=== PATIENT | male | born 1965 | race Caucasian/White ===

== ENCOUNTER 2019-04-14 06:19 | Inpatient (IN) ==
--- NOTE | 2019-04-06 21:19 | PAT Medication Instructions ---
Medication Instructions Date of Service April 06, 2019 Home Medications albuterol sulfate 1.25 mg INHALATION QID PRN cyclobenzaprine 5 mg PO TID PRN epinephrine [EpiPen] 0.3 mg IM Q3H PRN fexofenadine-pseudoephedrine [Yesika-D 24 Hour] 1 tab PO QAM hydrocodone-acetaminophen 1 tab PO Q6H PRN mometasone-formoterol [Dulera] 2 puff INHALATION BID montelukast [Singulair] 10 mg PO QAM Continue as directed epinephrine [EpiPen] 0.3 mg IM Q3H PRN (if needed) DO NOT take the morning of surgery cyclobenzaprine 5 mg PO TID PRN fexofenadine-pseudoephedrine [Yesika-D 24 Hour] 1 tab PO QAM montelukast [Singulair] 10 mg PO QAM Take morning of surgery With a small sip of water, OTHERWISE NOTHING TO EAT OR DRINK AFTER MIDNIGHT: albuterol sulfate 1.25 mg INHALATION QID PRN (use if needed; please bring with you to hospital day of surgery if possible) hydrocodone-acetaminophen 1 tab PO Q6H PRN (okay to take up to 4 hours prior to surgery if needed) mometasone-formoterol [Dulera] 2 puff INHALATION BID Other Notes If you have any questions please call us at [phone] or [phone] or [phone] or [phone]
--- NOTE | 2019-04-07 12:22 | History & Physical Report ---
Date of Service April 07, 2019 date of surgery: 04-14-19 Assessment & Plan (1) Tricompartment osteoarthritis of right knee: Risks and benefits of procedure discussed in detail today, patient would like to proceed with a Right total knee replacement at [facility] as scheduled. will obtain PATs at [facility]. Will place on ASA 81mg po bid x 1 month post op, f/u 2 weeks post op for routine post-operative care and x-ray, sooner if having any problems. will make arrangements for HHPT at the time of discharge. At this point in time, has failed conservative measures and would like to proceed with surgical intervention. History of Present Illness Chief Complaint: right knee pain Primary Care Provider: Liliana Morrison Mr García is a 54 year old male who is here for a follow up of right knee pain, presents for pre-op evaluation prior to a right total knee replacement at [facility] on 04-14-19. he complains of pain and decreased range of motion in his right knee. The symptoms occur intermittently. Currently the patient states that the symptoms are moderate-severe. The pain is described as aching. The symptoms occur intermittently. he has tried previous cortisone injections with no relief, uses tylenol and PO NSAIDs with no relief. he is having pain with walking, standing, using stairs and occasional pain at night. Allergies Allergy/AdvReac Type Severity Reaction Status Date / Time ibuprofen Allergy Difficulty Verified 03/31/19 10:18 Breathing; swelling of the eyes Home Medications Home Medications Medication Instructions Recorded Confirmed Type albuterol sulfate 1.25 mg INHALATION QID PRN 03/31/19 03/31/19 History cyclobenzaprine 5 mg PO TID PRN 03/31/19 03/31/19 History epinephrine [EpiPen] 0.3 mg IM Q3H PRN 03/31/19 03/31/19 History fexofenadine-pseudoephedrine 1 tab PO QAM 03/31/19 03/31/19 History [Yesika-D 24 Hour] hydrocodone-acetaminophen 1 tab PO Q6H PRN 03/31/19 03/31/19 History mometasone-formoterol [Dulera] 2 puff INHALATION BID 03/31/19 03/31/19 History montelukast [Singulair] 10 mg PO QAM 03/31/19 03/31/19 History Past Med/Surg History Medical History Asthma last used PRN neb 2-3 months ago (does not use PRN inh) [place] (hard of hearing) Rt History of gastroesophageal reflux (GERD) Osteoarthritis Surgical History History of arthroscopic knee surgery BL History of colonoscopy History of esophagogastroduodenoscopy (EGD) History of sinus surgery x 2 History of tonsillectomy History of tooth extraction Social History Preferred Language: Peruvian Communication Ability: Effective 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 Beliefs That Will Affect Care: None Current Living Situation: Spouse Other Information That Helps Us Care for You: No Feels Safe at Home: Yes Safety Concerns: Feels Safe At This Time Smoking Status: Never smoker Do You Dip or Chew Tobacco: No ; Second Hand Exposure: No ; Hx Alcohol Use: No Hx Substance Use: No Review of Systems Review of Systems: All systems reviewed & are unremarkable except as noted in HPI & below Constitutional: no fever, no chills and no sweats Respiratory: no cough and no dyspnea Cardiovascular: no chest pain, no dyspnea and no orthopnea Gastrointestinal: no abdominal pain, no nausea and no vomiting Musculoskeletal: as per Subjective / HPI Physical Exam Physical Exam: Ht: 5ft 11in Wt: 76kg BP: 122/72 Pulse: 72 Constitutional: WD/WN, vitals as above no acute distress Respiratory: normal respiratory effort, lungs clear to auscultation no respiratory distress, no labored breathing and does not use accessory muscles Cardiovascular: RRR, no murmur, no edema Gastrointestinal (Abdomen): normal bowel sounds, soft, nontender, no hepatosplenomegaly Musculoskeletal: Knee: + knee abnormal to inspection (right knee), + effusion (+1 effusion), + surgical incision (well healed portals), + limited ROM of knee (ROM 0/3/110), + knee ROM with crepitation, + joint line tenderness (medial joint line) and + Anjelica's sign positive; no deformity, no skin erythema, no ecchymosis, no valgus laxity, no varus laxity, anterior drawer test negative, Tessie's sign negative and pivot shift test negative Results & Data Diagnostic Findings Right knee x-ray from 04/28/18 showing complete loss joint space medial compartment with overall varus alignment, there is also narrowing of the lateral compartment and patellofemoral joint. there is osteophyte formation, subchondral sclerosis noted, no loose bodies, no acute bony pathology. overall impression tricompartmental degenerative changes to the right knee.
--- NOTE | 2019-04-07 13:01 | Anesthesiology Consultation ---
Date of Service April 07, 2019 Assessment & Plan (1) Encounter for pre-operative examination: Chart Review Chart Review: Pending: Refer to Additional Notes / Consult section (pending preop testing (labs, EKG, CXR)) and Patient seen in Pre Admission Testing Teaching & Discussion Pre-Anesthesia Teaching/Discussion Notes: Instructed NPO after midnight before surgery,except medications with 15 cc of water. Medication instructions provide d according to the PAT guidelines. History Surgery Operation Date: 04/14/19 10:25 Proposed Procedures p Right Total Knee Arthroplasty - Serafin Zambrano DO Height/Weight Height: 5 ft 11 in Weight: 78.2 kg Allergies Allergy/AdvReac Type Severity Reaction Status Date / Time ibuprofen Allergy Difficulty Verified 03/31/19 10:18 Breathing; swelling of the eyes Medications Home Medications Medication Instructions Recorded Confirmed Last Taken albuterol sulfate 1.25 mg INHALATION QID PRN 03/31/19 03/31/19 Unknown cyclobenzaprine 5 mg PO TID PRN 03/31/19 03/31/19 Unknown epinephrine [EpiPen] 0.3 mg IM Q3H PRN 03/31/19 03/31/19 Unknown fexofenadine-pseudoephedrine 1 tab PO QAM 03/31/19 03/31/19 Unknown [Yesika-D 24 Hour] hydrocodone-acetaminophen 1 tab PO Q6H PRN 03/31/19 03/31/19 Unknown mometasone-formoterol [Dulera] 2 puff INHALATION BID 03/31/19 03/31/19 Unknown montelukast [Singulair] 10 mg PO QAM 03/31/19 03/31/19 Unknown Past Medical History Medical History Asthma stable [place] (hard of hearing) Right History of gastroesophageal reflux (GERD) controlled; no recent issues Osteoarthritis Exercise / Class Metabolic Activity II 4-5 Yardwork/Stairs/Walk up hill Past Surgical History Surgical History History of arthroscopic knee surgery BL History of colonoscopy History of esophagogastroduodenoscopy (EGD) History of sinus surgery x 2 History of tonsillectomy History of tooth extraction Past Anesthesia History No Hx of Anesthesia Complications and No Family Hx of Anesthesia Complications History of PONV No Hx of PONV and No Hx of Motion Sickness Social History Smoking Status: Never smoker Do You Dip or Chew Tobacco: No Hx Alcohol Use: No Hx Substance Use: No substance use type: does not use Review of Systems Hx reflux. No recent issues. Patient denies chest pain, shortness of breath, dyspnea on exertion, cough, wheezing, palpitations. Physical Exam Vital Signs VITALS BP 128/86 P 69 TEMP 98.1 SP02 99%RA RESP 18 PHYSICAL Full neck and c-spine range of motion. Full TMJ range of motion. TMD 3 finger breaths Mallampati Score 2 Dentition: broken molars per patient Lungs: clear throughout to auscultation Cardiac: regular rate and rhythm, no murmurs noted Spine: normal Carotid arteries: negative bruit Extremities: no edema
--- NOTE | 2019-04-07 14:19 | XRay Report ---
XR chest Pre-admission PA/Lat CLINICAL HISTORY: Preoperative chest COMPARISON STUDY: No previous studies for comparison. FINDINGS: The cardiac and mediastinal contours are normal. There is no evidence of focal pulmonary co nsolidation. There is no evidence of failure. No pleural effusions are visualized.[ There is an old deformity of the right shoulder region, possibly secondary to a chronic AC joint sepa ration IMPRESSION: No active disease in the chest. Electronically signed by: Turner Newell M.D. 04/07/2019 2:17 PM
[2019-04-07 15:30] LABS: Basophils # (auto) 0.03 K/uL (0-0.2); Basophils % (auto) 0.5 %; Eosinophils # (auto) 0.48 K/uL (0-0.5); Eosinophils % (auto) 7.5 %; Hematocrit (blood only) 40.8 % (42-52); Hemoglobin 14.3 g/dL (14.0-18.0); Lymphocytes # (auto) 2.21 K/uL (1.2-3.4); Lymphocytes % (auto) 34.5 %; Mean Corpuscular Hemoglobin 32.8 pg (25-34); Mean Corpuscular Volume 93.6 fL (80-100); Mean Platelet Volume 9.3 fL (7.4-10.4); Monocytes # (auto) 0.62 K/uL (0.11-0.59); Monocytes % (auto) 9.7 %; Neutrophils # (auto) 3.07 K/uL (1.4-6.5); Neutrophils % (auto) 47.8 %; Platelet Count 247 K/uL (130-400); RDW Coefficient of Variation 12.7 % (11.5-14.5); RDW Standard Deviation 43.4 fL (36.4-46.3); Red Blood Count 4.36 M/uL (4.7-6.1); White Blood Count 6.41 K/uL (4.8-10.8)
[2019-04-07 15:33] LABS: Appearance Urine Clear (Clear); Bilirubin Urine Negative (Negative); Blood Urine Negative (Negative); Color Urine Yellow; Glucose Urine UA Negative (Negative); Ketones Urine Negative (Negative); Leukocyte Esterase Urine Negative (Negative); Nitrite Urine Negative (Negative); Protein Urine Negative (Negative); Specific Gravity Urine 1.032 (1.000-1.030); Urobilinogen Urine Negative (Negative); pH Urine 5.5 (4.5-7.5)
[2019-04-07 15:38] LABS: Albumin Level 3.9 gm/dl (3.4-5.0); BUN Creatinine Ratio 21.8 (10-20); Calcium 9.2 mg/dl (8.5-10.1); Creatinine Clr Calc Pharmacy 118.7 ml/min; Est GFR (African American) 119.5; Est GFR (Non-African American) 103.1; Potassium 4.2 mmol/L (3.5-5.1)
[2019-04-07 15:47] LABS: Partial Thromboplastin Time 26.6 Seconds (21.0-31.0); Prothrombin Time 10.7 Seconds (9.0-12.0)
[2019-04-08 07:06] LABS: Estimated Average Glucose 103 mg/dl; Hemoglobin A1C 5.2 % (4.5-5.6)
[~2019-04-14 06:19] MED LIST: ACETAMINOPHEN 500 MG TAB PO SCH; BUPIVACAINE 0.5 % 5 MG/1 ML PF 10ML VIAL ONE; CEFAZOLIN 1000MG 1,000 MG/7.5 ML SYR IV SCH; CeleBREX 200 MG CAP PO SCH; GABAPENTIN 600 MG DOSE PO SCH; LR 500ML BOLUS, THEN 15ML/HR IV SCH; TRANEXAMIC ACID 1,000 MG **IV Pre-op IV SCH; dexAMETHasone 4 MG TAB PO SCH
[2019-04-14] MEDS ORDERED: TRANEXAMIC ACID 1,000 MG **IV Intra-op IV SCH (06:30)
[2019-04-14] MEDS ORDERED: KETAMINE HCL INJ 50 MG/ML 10 ML VIAL ONE (06:39)
[2019-04-14] MEDS ORDERED: MIDAZOLAM HCL 1 MG/ML 2ML VIAL ONE (06:39)
--- NOTE | 2019-04-14 07:20 | History & Physical Bridge Note ---
Date of Service April 14, 2019 History & Physical Bridge Note I have examined the patient, reviewed the History & Physical and in the interval since the performance of the History & Physical I have noted the following changes of clinical significance: no changes noted
[2019-04-14] MEDS ORDERED: BACITRACIN INJ 50,000 UNIT VIAL ONE (07:32)
[2019-04-14] MEDS ORDERED: ROPIVACAINE 0.5% HCL/PF 150 MG, BUPIVACAINE 0.5% MPF 30 ML, EPINEPHrine 30MG/30ML (OR U... INSTIL ONE ×3 (08:00→09:00)
[2019-04-14] MEDS ORDERED: fentaNYL citrate 100 MCG/2 ML VIAL IV PRN (08:05)
[2019-04-14] MEDS ORDERED: ONDANSETRON INJ 2 MG/ML 2 ML VIAL IV PRN ×2 (08:05→10:17)
[2019-04-14] MEDS ORDERED: ePHEDrine sulfate 50 MG/ML AMP IV PRN (08:05)
[2019-04-14] MEDS ORDERED: ATROPINE SULFATE 0.1 MG/ML 10ML SYR IV PRN (08:05)
[2019-04-14] MEDS ORDERED: fentaNYL citrate 100 MCG/2 ML VIAL ONE (08:36)
[2019-04-14] MEDS ORDERED: ORTHO JOINT ANESTHETIC SC ONE (08:50)
[2019-04-14] MEDS ORDERED: DEXAMETHASONE SOD INJ 4 MG/ML VIAL ONE (09:02)
[2019-04-14] MEDS ORDERED: ONDANSETRON INJ 2 MG/ML 2 ML VIAL ONE (09:02)
[2019-04-14] MEDS ORDERED: LIDOCAINE HCL 2% 2 ML VIAL/AMP(20MG/ML) INFIL ONE (09:02)
[2019-04-14] MEDS ORDERED: GLYCOPYRROLATE 0.2 MG/ML VIAL ONE (09:02)
[2019-04-14] MEDS ORDERED: PROPOFOL IV EMULSION 10 MG/ML 20 ML VIAL IV ONE ×2 (09:02→09:44)
--- NOTE | 2019-04-14 09:37 | Operative Report ---
Post Operative Report Pre & Post Diagnosis Operation Date: 04/14/19 08:50 Pre-Op Diagnosis: Degernerative joint disease right knee Post-Op Diagnosis: Degernerative joint disease right knee Procedure Operation Date: 04/14/19 08:50 Actual Procedures p Right Total Knee Arthroplasty(Right) utilizing [employer] journey to non- block total knee arthroplasty size 6 femur 6 tibia 10 polyethylene 32 oval patella- Serafin Zambrano DO Surgeon Serafin Zambrano DO Is Manager Klaus MONTOYA Estimated Blood Loss 5 Findings Consistent with Post-Op Diagnosis Patient presents with severe end-stage tricompartmental DJD of the right knee varus alignment 10 degree flexion contracture patient noted evidence of subchondral sclerosis marginal osteophytes eburnated bone subchondral cystic changes with a moderate to large effusion Specimens Bone card Drains Medium bore Hemovac Complications none Disposition Accompanied Patient To Recovery: No Disposition: Recovery Room Indications Patient presents as a 54-year-old white male with severe end-stage tricompartmental degenerative joint disease of the right knee varus alignment 10 degree flexion contracture [id number] is failed attempted Visco supplementation cortical steroid injections relative rest activity modification presents for right total knee arthroplasty the above intraoperative findings noted times surgery Description of Procedure After proper identification of the patientAfter proper prepping and draping of the Right lower extremity anterior midline incision was made over the region of the extensor extensor mechanism after meticulous hemostasis was obtained and maintained in subcutaneous tissues a medial parapatellar incision was made The patella was subluxed lateralward the medial lateral gutter were cleaned from any hypertrophic synovitis and scar tissue of the distal femoral block was placed and the distal femoral osteotomy cut was made subsequently the chamfers anterior and posterior osteotomy cuts were made utilizing the 4-in-1 block the tibia was subsequently subluxed anteriorward medial and ateral meniscal remnants were excised in their entirety remnants of the anterior and posterior cruciate ligaments were excised in their entirety excellent exposure of the proximal tibia was obtained the tibial osteotomy guide was placed on the proximal tibial osteotomy cut was made once again the knee was irrigated with copious amounts of sterile saline solution the patella was subsequently everted lateralward thickened scar tissue around the patella was removed the patella was subsequently cut utilizing a freehand technique and was drilled prepared for final preparation and placement of patella socially flexion-extension gaps were checked and the equal and symmetric trials were placed to the appropriate femoral and tibial trials with poly-spacer being placed for equal flexion and extension gaps and full range of motion including extension to 0 and flexion to 140 the trial components after having been taken to recovery range of motion was subsequently removed meticulous hemostasis was obtained and maintained subsequently a knee block injection of joint cocktail including ropivacaine 0.5% 150 mg. Bupivacaine 0.5% epinephrine 1-200,030 mL's toradol 30 mg dexamethasone 4 mg ketamine 10 mg clonidine 100 micrograms normal saline solution 30 mg was infiltrated into the soft tissues of the posterior knee medial lateral gutters and periosteal synovium special attention was paid to protect neurovascular structures at all times subsequently trial components having been removed the knee was irrigated with sterile saline solution. debris was removed the proximal tibia was subsequently prepared and was made ready for the placement of the tibial component tibial component was also cemented and tamped into position the femoral component was subsequently placed and cemented in the position the patellar component was subsequently cemented in position because hemostasis once again obtained and maintained wound having been thoroughly irrigated with debridement and debridement lavage was performed as well as a medial parapatellar incision closed with #1 Vicryl in interrupted fashion subcutaneous was closed with #2 Vicryl skin was closed with skin clips. PA-C was necessary for prepping and drapping as well as wound closure of deep fascia Sub cutaneous tissue and skin and was necessary for the case. A sterile compressive dressing was placed patient was taken to recovery in stable condition of report dictated by Juan Manuel I attest to the content of the Intraoperative Record and any orders documented therein. Any exceptions are noted below. I attest to the content of the Intraoperative Record and any orders documented therein. Any exceptions are noted below.
[2019-04-14] MEDS ORDERED: POVIDONE-IODINE OP SOLN 30 ML BTL TOP SCH (09:45)
[2019-04-14] MEDS ORDERED: bisacodyL 10 MG SUPP PR PRN (10:17)
[2019-04-14] MEDS ORDERED: MAGNESIUM HYDROXIDE SUSP 30 ML UDC PO PRN (10:17)
[2019-04-14] MEDS ORDERED: NALOXONE HCL 0.4 MG/1 ML VIAL/CARP IV PRN (10:17)
--- NOTE | 2019-04-14 10:36 | Anesthesiology Progress Note ---
Date of Service April 14, 2019 Anesthesia Post Procedure Vital Signs Vital Signs: Temp Pulse Pulse Resp BP Pulse Ox 04/14/19 10:30 96 H 15 128/85 97 04/14/19 10:20 110 H 19 122/82 98 04/14/19 10:11 97.0 F L 103 H 13 113/73 100 04/14/19 06:45 98.4 F 80 20 133/99 98 Pain Intensity Right Knee: Pain Intensity: 5 Transfer of Care Handoff Completed per policy Notes Mental Status: alert / awake / arousable and participated in evaluation Patient Amnestic to Procedure: Yes Nausea / Vomiting: adequately controlled Pain: adequately controlled Airway Patency, RR, SpO2: stable & adequate BP & HR: stable & adequate Hydration State: stable & adequate Neuraxial Anesthesia: was administered and sensory block is resolving Anesthetic Complications: no major complications apparent and Pt Satisfied with anesthetic care
--- NOTE | 2019-04-14 10:39 | XRay Report ---
RIGHT KNEE 2 VIEWS History: Right total knee arthroplasty. Degenerative arthritis. Postop. FINDINGS: The patient is status post a right total knee arthroplasty. The hardware is intact. No frac ture or dislocation. Skin naldo and surgical drains are in place. IMPRESSION: Right total knee arthroplasty. No evidence for hardware complication. Electronically signed by: Casper Aguayo M.D. 04/14/2019 10:38 AM
[2019-04-14] MEDS ORDERED: ALBUTEROL 0.083% NEBU SOLN 3 ML VIAL INH PRN (11:38)
[2019-04-14] MEDS: OXYCODONE HCL IR 5 MG TAB (IMMEDIATE RELEASE) PO PRN ×3 (11:40→23:49)
[2019-04-14] MEDS: SODIUM CHLORIDE 0.9% 1000ML 1,000 ML IV SCH ×2 (11:44→21:28)
[2019-04-14] MEDS: HYDROmorphone INJ 0.5 MG/0.5 ML SYR IV PRN (12:26)
[2019-04-14] MEDS ORDERED: DULERA - ORDER AWAITING ACTION SCH (16:00)
[2019-04-14] MEDS: CEFAZOLIN 1000MG 1,000 MG/7.5 ML SYR IV SCH ×2 (16:22→23:49)
[2019-04-14] MEDS: ACETAMINOPHEN 500 MG TAB PO SCH ×2 (16:23→21:32)
[2019-04-14] MEDS ORDERED: HYDROmorphone INJ 0.5 MG/0.5 ML SYR IV STA (16:24)
[2019-04-14] MEDS: OXYCODONE HCL 10 MG TABCR (OXYCONTIN) PO SCH (21:29)
[2019-04-14] MEDS: SENNA 8.6 MG TAB PO SCH (21:30)
[2019-04-14] MEDS: MONTELUKAST SODIUM 10 MG TABLET PO SCH (21:30)
[2019-04-14] MEDS: DOCUSATE SODIUM 100 MG CAP PO SCH (21:30)
[2019-04-14] MEDS: MOMETASONE/FORMOTEROL INH SCH (21:31)
[2019-04-15] MEDS: OXYCODONE HCL IR 5 MG TAB (IMMEDIATE RELEASE) PO PRN ×5 (03:15→19:02)
[2019-04-15] MEDS: ACETAMINOPHEN 500 MG TAB PO SCH ×2 (05:04→13:31)
[2019-04-15] MEDS: HYDROmorphone INJ 0.5 MG/0.5 ML SYR IV PRN ×5 (05:04→19:42)
[2019-04-15 05:13] LABS: Hematocrit (blood only) 37.4 % (42-52); Hemoglobin 12.8 g/dL (14.0-18.0); Mean Corpuscular Hemoglobin 32.5 pg (25-34); Mean Corpuscular Hgb Conc 34.2 g/dL (32-36); Mean Corpuscular Volume 94.9 fL (80-100); Mean Platelet Volume 9.3 fL (7.4-10.4); Platelet Count 196 K/uL (130-400); RDW Standard Deviation 45.3 fL (36.4-46.3); Red Blood Count 3.94 M/uL (4.7-6.1)
[2019-04-15 05:40] LABS: BUN Creatinine Ratio 17.2 (10-20); Calcium 8.2 mg/dl (8.5-10.1); Creatinine Clr Calc Pharmacy 109.8 ml/min; Est GFR (African American) 115.7; Est GFR (Non-African American) 99.9; Potassium 4.1 mmol/L (3.5-5.1)
--- NOTE | 2019-04-15 06:55 | Orthopedic Progress Note ---
Date of Service April 15, 2019 Assessment & Plan (1) Status post total right knee replacement: POD #1 s/p Right TKA pt/ot dvt proph with TERESA/SCD/Xarelto x 2 weeks plan for d/c home with home health when stable, will recheck after PT today pain control with Tylenol, Oxy IR, Oxy q12 and prn IV Dilaudid. Subjective POD #1 s/p Right TKA Review of Systems Constitutional: no fever, no chills and no sweats Respiratory: no cough and no dyspnea Cardiovascular: no chest pain and no dyspnea Gastrointestinal: no abdominal pain, no nausea and no vomiting Physical Exam Physical Exam: Vital Signs Temp Pulse Pulse Resp BP Pulse Ox 04/15/19 03:22 37.0 C 105 H 16 124/69 96 04/14/19 23:13 37.0 C 98 H 16 115/71 95 04/14/19 19:06 37.1 C 94 H 18 118/72 96 04/14/19 15:37 36.5 C 93 H 18 107/70 98 04/14/19 14:27 36.7 C 91 H 18 107/68 96 04/14/19 13:18 36.7 C 83 18 104/65 92 04/14/19 12:15 84 18 95/63 L 96 04/14/19 11:47 36.5 C 78 18 109/68 92 04/14/19 11:00 82 16 101/60 94 04/14/19 10:50 90 18 97/65 L 95 04/14/19 10:40 36.5 C 84 22 115/79 95 04/14/19 10:30 96 H 15 128/85 97 04/14/19 10:20 110 H 19 122/82 98 04/14/19 10:11 36.1 C L 103 H 13 113/73 100 Intake and Output 04/14/19 04/14/19 04/15/19 14:59 22:59 06:59 Intake Total 2595 / 4411.666 1048.333 / 4411.66 6 768.333 / 4411.666 Output Total 925 / 3200 600 / 3200 1675 / 3200 Balance 1670 / 1211.666 448.333 / 1211.666 -906.667 / 1211.66 6 Intake: IV 1135 / 2651.666 748.333 / 2651.666 768.333 / 2651.666 Lr 1,000 ml @ 15 mls/hr IV . 800 / 800 Q24H CHRISTOPHER Rx#:[id number] Nss 1000ML 1,0 00 ml @ 100 mls/ 225 / 1741.666 748.333 / 1741.666 768.333 / 1741.666 hr IV .Q10H SC H Rx#:[id number] Cyklokapron 1, 000 mg In Sodium 110 / 110 Chloride 100 m l @ 660 mls/hr IV 0630 CHRISTOPHER Rx#:[id number] IV Perioperative 1100 / 1100 Oral 360 / 660 300 / 660 Output: Urine 850 / 2700 450 / 2700 1400 / 2700 Estimated Blood Loss 5 / 5 Drain Output 70 / 495 150 / 495 275 / 495 Right Knee Hem ovac 70 / 495 150 / 495 275 / 495 Other: Weight 76.8 kg Patient Weight 04/15/19 06:59 Weight 76.8 kg Musculoskeletal: Right Leg: NVDI, calf SNT, negative otoniel sign. DP palpable, able to wiggle toes/ankle movement without difficulty. dressing clean dry and intact. Results & Data Vital Signs (Past 12 Hours) Vital Signs Temp Pulse Pulse Resp BP Pulse Ox 04/15/19 03:22 37.0 C 105 H 16 124/69 96 04/14/19 23:13 37.0 C 98 H 16 115/71 95 04/14/19 19:06 37.1 C 94 H 18 118/72 96 Laboratory Results Laboratory Results WBC 16.40 K/uL (4.8-10.8) H 04/15/19 04:44 RBC 3.94 M/uL (4.7-6.1) L 04/15/19 04:44 Hgb 12.8 g/dL (14.0-18.0) L 04/15/19 04:44 Hct 37.4 % (42-52) L 04/15/19 04:44 MCV 94.9 fL (80-100) 04/15/19 04:44 MCH 32.5 pg (25-34) 04/15/19 04:44 MCHC 34.2 g/dL (32-36) 04/15/19 04:44 RDW Std Deviation 45.3 fL (36.4-46.3) 04/15/19 04:44 RDW Coeff of Margot 13.0 % (11.5-14.5) 04/15/19 04:44 Plt Count 196 K/uL (130-400) 04/15/19 04:44 MPV 9.3 fL (7.4-10.4) 04/15/19 04:44 Immature Gran % (Auto) 0.0 % 04/07/19 13:43 Neut % (Auto) 47.8 % 04/07/19 13:43 Lymph % (Auto) 34.5 % 04/07/19 13:43 [place]ward % (Auto) 9.7 % 04/07/19 13:43 Eos % (Auto) 7.5 % 04/07/19 13:43 Baso % (Auto) 0.5 % 04/07/19 13:43 Immature Gran # (Auto) 0.00 K/uL (0.00-0.02) 04/07/19 13:43 Neut # (Auto) 3.07 K/uL (1.4-6.5) 04/07/19 13:43 Lymph # (Auto) 2.21 K/uL (1.2-3.4) 04/07/19 13:43 [place]ward # (Auto) 0.62 K/uL (0.11-0.59) H 04/07/19 13:43 Eos # (Auto) 0.48 K/uL (0-0.5) 04/07/19 13:43 Baso # (Auto) 0.03 K/uL (0-0.2) 04/07/19 13:43 PT 10.7 Seconds (9.0-12.0) 04/07/19 13:43 INR 1.0 (0.9-1.1) 04/07/19 13:43 APTT 26.6 Seconds (21.0-31.0) 04/07/19 13:43 PTT Ratio 1.0 04/07/19 13:43 Sodium 137 mmol/L (136-145) 04/15/19 04:44 Potassium 4.1 mmol/L (3.5-5.1) 04/15/19 04:44 Chloride 104 mmol/L (98-107) 04/15/19 04:44 Carbon Dioxide 27 mmol/L (21-32) 04/15/19 04:44 Anion Gap 6.0 (3-11) 04/15/19 04:44 BUN 14 mg/dl (7-18) 04/15/19 04:44 Creatinine 0.80 mg/dl (0.6-1.4) 04/15/19 04:44 Est Cr Clr Drug Dosing 109.8 ml/min 04/15/19 04:44 Est GFR ( Amer) 115.7 04/15/19 04:44 Est GFR (Non-Af Amer) 99.9 04/15/19 04:44 BUN/Creatinine Ratio 17.2 (10-20) 04/15/19 04:44 Glucose 134 mg/dl (70-99) H 04/15/19 04:44 Estimat Average Glucose 103 mg/dl 04/07/19 13:43 Hemoglobin A1c 5.2 % (4.5-5.6) 04/07/19 13:43 Calcium 8.2 mg/dl (8.5-10.1) L 04/15/19 04:44 Albumin 3.9 gm/dl (3.4-5.0) 04/07/19 13:43 Urine Color Yellow 04/07/19 Unknown Urine Appearance Clear (Clear) 04/07/19 Unknown Urine pH 5.5 (4.5-7.5) 04/07/19 Unknown Ur Specific Paron 1.032 (1.000-1.030) H 04/07/19 Unknown Urine Protein Negative (Negative) 04/07/19 Unknown Urine Glucose (UA) Negative (Negative) 04/07/19 Unknown Urine Ketones Negative (Negative) 04/07/19 Unknown Urine Blood Negative (Negative) 04/07/19 Unknown Urine Nitrite Negative (Negative) 04/07/19 Unknown Urine Bilirubin Negative (Negative) 04/07/19 Unknown Urine Urobilinogen Negative (Negative) 04/07/19 Unknown Ur Leukocyte Esterase Negative (Negative) 04/07/19 Unknown Blood Type A Positive 04/07/19 13:43 Antibody Screen NEGATIVE 04/07/19 13:43 Diagnostic Findings RIGHT KNEE 2 VIEWS History: Right total knee arthroplasty. Degenerative arthritis. Postop. FINDINGS: The patient is status post a right total knee arthroplasty. The hardware is intact. No fracture or dislocation. Skin naldo and surgical drains are in place. IMPRESSION: Right total knee arthroplasty. No evidence for hardware complication.
[2019-04-15] MEDS: RIVAROXABAN 10 MG TABLET PO SCH (08:38)
[2019-04-15] MEDS: DOCUSATE SODIUM 100 MG CAP PO SCH ×2 (08:38→21:00)
[2019-04-15] MEDS: OXYCODONE HCL 10 MG TABCR (OXYCONTIN) PO SCH ×2 (08:38→20:59)
[2019-04-15] MEDS: MULTIVITAMIN TAB PO SCH (08:38)
[2019-04-15] MEDS: FEXOFENADINE 60MG/PSEUDOEPHEDRINE 120MG TAB PO SCH (08:38)
[2019-04-15] MEDS: MOMETASONE/FORMOTEROL INH SCH ×2 (08:39→21:00)
[2019-04-15] MEDS ORDERED: ZOLPIDEM TARTRATE 5 MG TAB PO PRN (18:56)
[2019-04-15] MEDS: SENNA 8.6 MG TAB PO SCH (20:59)
[2019-04-15] MEDS: MONTELUKAST SODIUM 10 MG TABLET PO SCH (21:00)
[2019-04-16] MEDS: ACETAMINOPHEN 500 MG TAB PO SCH ×3 (00:32→12:02)
[2019-04-16] MEDS: OXYCODONE HCL IR 5 MG TAB (IMMEDIATE RELEASE) PO PRN ×2 (00:57→10:48)
[2019-04-16] MEDS: DOCUSATE SODIUM 100 MG CAP PO SCH (07:47)
[2019-04-16] MEDS: FEXOFENADINE 60MG/PSEUDOEPHEDRINE 120MG TAB PO SCH (07:47)
[2019-04-16] MEDS: RIVAROXABAN 10 MG TABLET PO SCH (07:47)
[2019-04-16] MEDS: MULTIVITAMIN TAB PO SCH (07:47)
[2019-04-16] MEDS: MOMETASONE/FORMOTEROL INH SCH (07:48)
--- NOTE | 2019-04-16 08:28 | Pain Management Consultation ---
Date of Consultation April 16, 2019 Assessment & Plan (1) Status post total right knee replacement: Present on Admission?: No (2) Osteoarthritis: Present on Admission?: Yes (3) Tricompartment osteoarthritis of right knee: 1. Patient with long-standing history of osteoarthritis related pain for which she has been utilizing hydrocodone 10/325 mg 1 tablet p.o. 3 times daily-4 times daily. Review of PDMP confirmed chronic monthly refilling of hydrocodone/acetaminophen 10/325 mg #90/month over the past 1 year. 2. Patient reportedly had poor pain control postoperative day #1 but is reporting adequate pain control over night on POD #2. Patient has not utilized IV hydromorphone for breakthrough pain in the past 12 hours. Patient may continue with his OxyIR for as needed breakthrough pain at this time without change in recommendation and reserve IV hydromorphone for pain not well controlled OxyIR. 3. Patient will participate in PT/OT today. We did discuss expectations regarding increased pain with PT/OT activities and appropriate dosing of breakthrough pain medication. 4. Patient will continue with OxyContin 10 mg every 12 hours per Ortho protocol at their discretion 5. Patient to be discharged with Narcan therapy. Patient should also be discouraged from utilizing his hydrocodone while using OxyContin/OxyIR. Thank you for allowing us to participate in the care of Mr. García. Present on Admission?: Yes History of Present Illness Reason for Consultation: Intractable right knee pain status post right TKA Requesting Physician: Klaus Stewart PA-C Attending Physician: Serafin Zambrano DO History of Present Illness Mr. García is a 54-year-old white male who is POD #2 status post a right TKA for severe tricompartmental osteoarthritis. Patient has a long-standing history of osteoarthritis and is followed by rheumatology. The patient reports that he has utilized hydrocodone over the past 1-2 years 10/325 mg 3 times daily-4 times daily for pain associated with his osteoarthritis complaints. The patient had fairly significant pain overnight the day after his surgery but reported minimal pain last evening reporting improved pain control throughout last night. Patient reports his discomfort is minimal at this time without movement rating it at a 2/10. His pain can escalate to an 8/10 with movement where he describes a pressure, tightness and throbbing characteristic pain in the knee region. He was able to participate in PT/OT and did ambulate yesterday morning. Patient denies low back or lumbar radicular component to his symptoms. He denies pain in the right gastrocnemius region. He denies left lower extremity pain complaints. Patient reports that his use of OxyIR early this morning was able to control his pain and allow him to sleep without awakenings. He reports minimal discomfort at this time and has no further constitutional complaints. Plan of care discussed with Dr. Palma Herman. Pain Assessment Pain scale - at its best (0-10): 2 Pain scale - at its worst (0-10): 8 Allergies Allergy/AdvReac Type Severity Reaction Status Date / Time ibuprofen Allergy Difficulty Verified 04/14/19 06:39 Breathing; swelling of the eyes Home Medications Home Medications Medication Instructions Recorded Confirmed Type albuterol sulfate 1.25 mg INHALATION QID PRN 03/31/19 04/14/19 History cyclobenzaprine 5 mg PO TID PRN 03/31/19 04/14/19 History epinephrine [EpiPen] 0.3 mg IM Q3H PRN 03/31/19 04/14/19 History fexofenadine-pseudoephedrine 1 tab PO QAM 03/31/19 04/14/19 History [Yesika-D 24 Hour] hydrocodone-acetaminophen 1 tab PO Q6H PRN 03/31/19 04/14/19 History mometasone-formoterol [Dulera] 2 puff INHALATION BID 03/31/19 04/14/19 History montelukast [Singulair] 10 mg PO QAM 03/31/19 04/14/19 History acetaminophen [Tylenol Extra 1,000 mg PO Q8 14 Days #84 tab 04/15/19 Rx Strength] rivaroxaban [Xarelto] 10 mg PO DAILY #30 tab 04/15/19 Rx sennosides [Senokot] 17.2 mg PO HS PRN #30 tab 04/15/19 Rx Pain History Pain Intensity Pain scale - at its best (0-10): 2 Pain scale - at its worst (0-10): 8 Patient History Medical History Asthma (Chronic) stable BLACKFEET (hard of hearing) (Chronic) Right History of gastroesophageal reflux (GERD) (Chronic) controlled; no recent issues Osteoarthritis (Chronic) Surgical History History of colonoscopy (Resolved) History of esophagogastroduodenoscopy (EGD) (Resolved) History of sinus surgery (Resolved) x 2 History of arthroscopic knee surgery (Resolved) BL History of tonsillectomy (Resolved) History of tooth extraction (Resolved) Social History Preferred Language: Salvadorean Communication Ability: Effective Ladies[employer] Locker Room Attendant Required: No Beliefs That Will Affect Care: None Current Living Situation: Spouse Other Information That Helps Us Care for You: No Feels Safe at Home: Yes Safety Concerns: Feels Safe At This Time Smoking Status: Never smoker Do You Dip or Chew Tobacco: No ; Second Hand Exposure: No ; Hx Alcohol Use: No Hx Substance Use: No Physical Exam Physical Exam: General: Patient lying quietly upon entering the exam room in no acute distress. Speech and thought process appropriate. Mood and affect appropriate. Cognition intact. Patient appears to be his approximate stated age of 54. Head: Normocephalic and atraumatic. ENT: No evidence of nasal or oral mucosal lesions. Mucous membranes are moist. Eyes: Pupils equal round reactive to light. Neck: Supple without adenopathy and full range of motion. Upper extremities: Patient has thickening of PIP and DIP joints throughout without active synovitis. Lower extremities: Bandage remains in place over the right anterior knee status post TKA. Minimal tenderness to palpation. Minimal edema is appreciated. No significant discharge evidence. Limited range of motion with approximately 10- 15 degrees of flexion prior to increased discomfort limiting further flexion. Extension to 0 degrees. Nontender over the gastrocnemius. Posterior tibial pulses 2+ and equal bilaterally. Warmth was appreciated of the lower extremities. Neurologic: Cranial nerves grossly intact. Ambulatory function not witnessed.
--- NOTE | 2019-04-16 08:37 | Orthopedic Progress Note ---
Date of Service April 16, 2019 Assessment & Plan (1) Status post total right knee replacement: POD #2 s/p Right TKA pt/ot dvt proph with TERESA/SCD/Xarelto x 2 weeks plan for d/c home with home health when stable, will recheck after PT today pain control with Tylenol, Oxy IR, Oxy q12 and prn IV Dilaudid. Discussed pain prescriptions with Sanjay Gonzalez from pain management. We will plan to send home on his current dose of OxyIR and a 3-day supply of his OxyContin. We will also plan on giving him a prescription for Narcan of which I have explained to the patient. Subjective Postop day 2 status post right total knee arthroplasty. Patient is awake and alert and without complaints. He states that his pain is much better controlled today. He apparently has not had to use his IV Dilaudid over the last 12 hours. Pain management was in to see him this morning to make recommendations. Patient states that he does feel much better and is hoping to go home today. Physical Exam Physical Exam: Silverlon dressing is clean, dry, and intact. Calves are soft nontender. Neurovascular intact. Toes are mobile. Results & Data Vital Signs (Past 12 Hours) Vital Signs Temp Pulse Resp BP Pulse Ox 04/16/19 07:25 36.8 C 96 H 18 129/87 97 04/16/19 00:11 36.9 C 98 H 18 152/94 H 95
[2019-04-16] MEDS: OXYCODONE HCL 10 MG TABCR (OXYCONTIN) PO SCH (08:42)
--- NOTE | 2019-04-20 07:31 | Discharge Summary ---
Date of Service April 20, 2019 Admission HPI Per Admitting Provider Mr García is a 54 year old male who is here for a follow up of right knee pain, presents for pre-op evaluation prior to a right total knee replacement at [facility] on 04-14-19. he complains of pain and decreased range of motion in his right knee. The symptoms occur intermittently. Currently the patient states that the symptoms are moderate-severe. The pain is described as aching. The symptoms occur intermittently. he has tried previous cortisone injections with no relief, uses tylenol and PO NSAIDs with no relief. he is having pain with walking, standing, using stairs and occasional pain at night. Admission Exam Per Admitting Provider Physical Exam: Ht: 5ft 11in Wt: 76kg BP: 122/72 Pulse: 72 Constitutional: WD/WN, vitals as above no acute distress Respiratory: normal respiratory effort, lungs clear to auscultation no respiratory distress, no labored breathing and does not use accessory muscles Cardiovascular: RRR, no murmur, no edema Gastrointestinal (Abdomen): normal bowel sounds, soft, nontender, no hepatosplenomegaly Musculoskeletal: Knee: + knee abnormal to inspection (right knee), + effusion (+1 effusion), + surgical incision (well healed portals), + limited ROM of knee (ROM 0/3/110), + knee ROM with crepitation, + joint line tenderness (medial joint line) and + Anjelica's sign positive; no deformity, no skin erythema, no ecchymosis, no valgus laxity, no varus laxity, anterior drawer test negative, Tessie's sign negative and pivot shift test negative Principal Diagnosis Djd Right Knee Discharge Exam Silverlon dressing is clean, dry, and intact. Calves are soft nontender. Neurovascular intact. Toes are mobile. Discharge Data Allergies Allergy/AdvReac Type Severity Reaction Status Date / Time ibuprofen Allergy Difficulty Verified 04/14/19 06:39 Breathing; swelling of the eyes Consultations 04/14/19 10:17 Consult Case Management - Discharge Planning Routine 04/15/19 12:43 Consult Pain Management Routine Procedures Performed Operation Date: 04/14/19 08:50 Actual Procedures p Right Total Knee Arthroplasty(Right) - Serafin Zambrano DO Ordered Studies 04/14/19 05:00 US - OR guided needle placemen Routine Hospital Course (1) Osteoarthritis of right knee: Patient was admitted on the above-noted date and had the above-noted surgery performed which he tolerated well. On his first postoperative day, he had no complaints. Pain was controlled and he denied shortness of breath, chest pain, lightheadedness. Denied nausea or vomiting. Vital signs were stable. Dressings were clean, dry, and intact. Calves were soft and nontender. Neurovascular is intact. Toes were mobile. He was started on a PT and OT protocol. Continued on DVT prophylaxis with Xarelto, SCDs, TERESA [place]. As the patient's nerve blocks were off later in the day, he was having uncontrolled pain. Patient has a history of chronic narcotic use of hydrocodone 10 mg 4 times a day. OxyContin 10 mg p.o. every 12 hours was added to his pain management regimen. His OxyIR was increased slightly to 10-15 milligrams p.o. every 4 hours as needed. He also had IV hydromorphone every 4 hours as needed. Pain management consult was placed.By his second postoperative day. Patient was awake and alert without complaints. He stated that his pain control is much better and he had not had to use his IV Dilaudid over the last 12 hours. He was seen by Sanjay Gonzalez PA-C from pain management and recommendations were made. Silverlon dressing was clean, dry, and intact. Calves were soft and nontender. Neurovascular was intact. Toes were mobile vital signs were stable and he was afebrile. He was progressing with his physical therapy and remaining stable. I had spoken to Sanjay Gonzalez PA-C and discussed recommendations. Plans were to continue his OxyIR as written and also send him home on a 3-day supply of Ox yContin 10 mg twice daily. A prescription for Narcan was written for and discussed with the patient for to use. It was discussed that he would not use any of his hydrocodone at home. He was thusly discharged to home on 04/16/2019. Total Time Total Time Spent Total Time Spent (In Minutes): 5 Discharge Plan Discharge Items Patient Disposition: Home - Home Health Services Reason For Visit: Unilateral Primary Osteoarthritis, Right Knee Discharge Diagnosis: Right Knee osteoarthritis Activity: Per Instructions section Weightbearing: Right weightbearing Weightbearing Comment: as tolerated with walker Non-emergency contact: Surgeon Call non-emergency contact if: your pain is not controlled, your temperature is above 101.5, your wound has increased redness and your wound has increased drainage Follow-up/Referrals: Liliana Morrison PA-C [Primary Care Provider] - Diet: Regular Addtl Attending Provider Instructions: ACTIVITY RECOMMENDATIONS: SELF CARE INSTRUCTIONS AFTER TOTAL KNEE REPLACEMENT A. You may need to continue a physical therapy program after discharge from the hospital. There are several options available to you. Your doctor will assist you in selecting the best one for you. 1. An out-patient facility 2 to 3 times a week for therapy or home therapy. 2. Continue working on all exercises taught to you in the hospital. Your goals should be to increase bending of your knee to 90 degrees and beyond and to fully straighten your knee. B. You may progress at your own pace from walking with a walker or crutches to a cane; then to no assistive devices. C. Make walking a part of your daily routine. Be up as much as comfortable with rest periods throughout the day. Rest with leg elevation is very important. Use the ice wrap frequently for the first 3-4 weeks. D. There are no restrictions on activities. You may ride in a car, shop, participate in online facilitator and all social activities. E. Wear the long elastic stockings (TERESA hose) 20 hours a day for 2 weeks after surgery. They can be removed several times a day for laundering and for a bath. F. You may shower, no tub baths until cleared by your doctor. SPECIAL CARE INSTRUCTIONS: VERY IMPORTANT TO READ AND REVIEW A. There are a few signs you need to watch for after you are home. Call [facility] if you notice any of the followin. Increased severe knee pain. Some pain is expected especially when you exercise. 2. Increased swelling in your leg or knee; pain or swelling of the calf muscle in either lower leg. 3. Any fluid drainage from the incision. 4. Shortness of breath or chest pain. B. Please call [facility] at if you have any concerns or questions about your operation or recovery. The doctor or his nurse will return your call promptly. C. You must take antibiotics before dental work, bladder, bowel or other mina rgery. Your doctor will provide you with a permanent care to carry describing this precaution. IMPORTANT: * REMEMBER TO TAKE ASPIRIN, 81 MG, TWICE DAILY FOR 4 WEEKS UNLESS OTHERWISE DIRECTED. THIS IS YOUR BLOOD THINNER. * HIGH RISK PATIENTS MAY BE PRESCRIBED A STRONGER BLOOD THINNER. THIS WILL BE PROVIDED AT DISCHARGE. * CALL IF INCREASED PAIN, REDNESS, DRAINAGE OR FEVER GREATER THAT 101. * WEAR TERESA HOSE 20 HOURS PER DAY FOR 2 WEEKS. * Silverlon- This is a large adhesive bandage that contains silver ions. This helps your incision heal by fighting off bacteria and protecting it from the outside environment. You are permitted to shower with this dressing. This will remain on your incision for 7 days and then should be removed. Some visible blood or drainage through the dressing window is normal. If there is significant drainage or leaking noted before the 7 days notify your doctor's office immediately. Once removed, keep incision clean and dry. If there is any drainage or redness noted, please call your surgeon. . FOLLOW UP VISIT: If appointment is not already scheduled: Please call [facility] to make a follow-up appointment for 2 weeks after your surgery at . Stand-Alone Forms: My [facility] Medications and DC Order Prescriptions: New Xarelto 10 mg Tablet 10 mg PO DAILY Qty: 30 RF: 0 sennosides [Senokot] 8.6 mg Tablet 17.2 mg PO HS PRN (Reason: constipation) Qty: 30 RF: 0 acetaminophen [Tylenol Extra Strength] 500 mg Tablet 1,000 mg PO Q8 14 Days Qty: 84 RF: 0 oxycodone [OxyContin] 10 mg Tablet,Oral Only,Ext.Rel.12 Hr 10 mg PO BID Qty: 6 RF: 0 oxycodone 5 mg Tablet 10 - 15 mg PO Q6H PRN (Reason: pain) Qty: 30 RF: 0 cefadroxil 500 mg capsule 500 mg PO BID Qty: 14 RF: 0 Narcan 4 mg/actuation spray,non-aerosol 1 sprays INTNAS ONCE Qty: 2 RF: 0 Continued montelukast [Singulair] 10 mg Tablet 10 mg PO QAM RF: 0 cyclobenzaprine 5 mg Tablet 5 mg PO TID PRN (Reason: Muscle Spasm) RF: 0 Yesika-D 24 Hour 180-240 mg Tablet Extended Release 24 Hr 1 tab PO QAM RF: 0 albuterol sulfate 1.25 mg/3 mL Solution For Nebulization 1.25 mg INHALATION QID PRN (Reason: sob) RF: 0 Dulera 200-5 mcg/actuation Hfa Aerosol Inhaler 2 puff INHALATION BID RF: 0 epinephrine [EpiPen] 0.3 mg/0.3 mL Auto-Injector 0.3 mg IM Q3H PRN (Reason: Anaphylaxis) RF: 0 Discontinued hydrocodone-acetaminophen 5-325 mg Tablet 1 tab PO Q6H PRN (Reason: Pain) RF: 0 Discharge Orders: Discharge Order (Routine); Ordered 04/16/19 Ordered By: Klaus Stewart Admission Data Admit Date/Time: 04/14/19 10:17 Attending Provider: Serafin Zambrano Admit Provider: Serafin Zambrano Primary Care Provider: Liliana Morrison Other Providers: Palma Herman Other Interventions: Discharge Summary Assessment (RN) Last Done: 04/16/19 11:45 DC Date/Time DO NOT enter until pt leaves facility: 04/16/19 13:56
== END 2019-04-16 13:56 | disposition home health service (06) | DRG 470 ==
LOC: ASU 06:19 → 3E 10:17